=== PATIENT | male | born 1970 | race American Indian/Alaskan Native ===

== ENCOUNTER 2019-04-29 07:51 | Outpatient (CLI) | payer OTHER ==
--- NOTE | 2019-04-29 09:16 | Magnetic Resonance Report ---
MR LE joint LT wo con INDICATION / CLINICAL INFORMATION: SEVERE LEFT KNEE TRI-COMPARTMENTAL OA. TECHNIQUE: Multiplanar, multisequence MR images were obtained. COMPARISON: None available. FINDINGS: At the medial tibiofemoral compartment, there is moderate to advanced joint space narrowing with aaron inal osteophyte formation. There is advanced diffuse cartilage thinning with near full-thickness cart ilage loss along the weightbearing surfaces. There is mild degenerative tearing along the undersurfac e of the medial meniscus posterior horn. No flipped fragments are seen. At the lateral tibiofemoral compartment, there is moderate joint space narrowing. There is full-thick ness, complete cartilage loss along both sides of the joint. There is degenerative maceration of the lateral meniscus body and anterior horn with degenerative tearing extending into the posterior horn. At the patellofemoral articulation, there is advanced cartilage loss and osteophyte formation. There is mucoid degeneration of the anterior cruciate ligament. No acute cruciate or collateral ligam ent injury is seen. The extensor mechanism is intact. Moderate to large joint effusion is noted with supra patellar synovitis. There are numerous intra-art icular osteochondral bodies. No bursal fluid collections are seen. Bone marrow signal is unremarkable aside from artifact at the proximal attachment of the medial colla teral ligament and subchondral changes related to overlying cartilage loss. IMPRESSION: 1. Advanced tricompartmental osteoarthrosis, greatest at the lateral tibiofemoral compartment as abov e. 2. Joint effusion with synovitis and numerous intra-articular osteochondral bodies. Signer Name: Ric Palmer MD Signed: 04/29/2019 9:12 AM Workstation Name: [id number]
== END 2019-04-29 07:52 | disposition home or self-care (01) ==
LOC: MRI 07:51
PROVIDERS: ATTEND Internal Medicine
DX: S83.242A Other tear of medial meniscus, current injury, left knee, initial encounter (principal); M17.12 Unilateral primary osteoarthritis, left knee; M25.462 Effusion, left knee; X58.XXXA Exposure to other specified factors, initial encounter; Y93.89 Activity, other specified; Y92.89 Other specified places as the place of occurrence of the external cause; Y99.8 Other external cause status
CPT/HCPCS: 73721